=== PATIENT | female | born 1955 | race African-American/Black ===

== ENCOUNTER 2020-09-28 17:08 | Inpatient (IN) | payer OTHER ==
[~2020-09-28] VITALS: Ht 160 cm; Wt 88.9 kg
[~2020-09-28 17:08] MED LIST: ASPI-1497 PO; FLUO20CA33 PO; METO-385 PO; QUET25TA PO
[2020-09-28] MEDS ORDERED: NITROGLYCERIN 0.4MG TABLET SL SL PRN (17:45)
[2020-09-28] MEDS ORDERED: FUROSEMIDE 40MG/4ML VIAL IV ONE (17:45)
[2020-09-28] MEDS ORDERED: ASPIRIN 81MG TABLET PO ONE (17:45)
[2020-09-28 19:00] LABS: BASOPHILS % 0.8 % (0.0-2.0); EOSINOPHILS % 2.2 % (0.0-5.0); HEMATOCRIT. 40.2 % (36.0-48.0); HEMOGLOBIN. 13.7 g/dL (12.0-16.0); LYMPHOCYTES % 25.9 % (20.0-50.0); MEAN PLATELET VOLUME 11.2 fl (7.4-10.4); MONOCYTES % 7.5 % (2.0-8.0); NEUTROPHILS % 63.6 % (40.0-76.0); PLATELET 165 x1000/uL (130-400); RED BLOOD CELL COUNT 4.27 mill/uL (4.2-5.4); RED CELL DISTRIBUTION WIDTH 15.4 % (11.6-14.6)
[2020-09-28] MEDS ORDERED: ACETAMINOPHEN WITH CODEINE 300/30MG TABLET PO ONE (19:00)
[2020-09-28 19:06] LABS: CHLORIDE 104 mEq/L (98-107)
[2020-09-28] MEDS ORDERED: IBUPROFEN 600MG TABLET PO ONE (20:45)
[2020-09-28] MEDS ORDERED: ENOXAPARIN 100MG/ML SYR SUBCUT ONE (22:30)
[2020-09-29] MEDS ORDERED: IBUPROFEN 600MG TABLET PO NR (04:00)
[2020-09-29] MEDS ORDERED: ENOXAPARIN 100MG/ML SYR SUBCUT NR (04:00)
[2020-09-29] MEDS ORDERED: DEXTROSE 50% WATER 50ML SYRINGE IV PRN (08:45)
[2020-09-29] MEDS ORDERED: CLONIDINE 0.1MG TABLET PO PRN (08:45)
[2020-09-29] MEDS ORDERED: ONDANSETRON HCL 4MG/2ML INJ IV PRN (08:45)
[2020-09-29] MEDS ORDERED: ACETAMINOPHEN 325MG TABLET PO PRN (08:45)
[2020-09-29] MEDS ORDERED: FUROSEMIDE 40MG/4ML VIAL IVP SCH (09:00)
[2020-09-29 11:15] VITALS: BP 166/69
[2020-09-29 11:41] VITALS: BP 166/69
[2020-09-29] MEDS: ASPIRIN 81MG TABLET PO SCH (11:50)
[2020-09-29] MEDS: LOSARTAN POTASSIUM 100 MG TABLET PO SCH (11:50)
[2020-09-29] MEDS: ENOXAPARIN 30MG/0.3ML SYR SUBCUT SCH ×2 (11:50→21:06)
[2020-09-29] MEDS: CLOPIDOGREL 75MG TABLET PO SCH (12:35)
[2020-09-29] MEDS: BLOOD SUGAR DIAGNOSTIC STRIP TEST SCH ×3 (12:35→21:07)
[2020-09-29] MEDS: AMLODIPINE 10MG TABLET PO SCH (12:35)
[2020-09-29] MEDS: INSULIN LISPRO 100 UNITS/ML SUBCUT SCH ×3 (13:23→21:08)
[2020-09-29 13:30] VITALS: BP 149/65
[2020-09-29] MEDS ORDERED: INSULIN GLARGINE UD 100 UNITS/ML SYR SUBCUT NR (14:00)
[2020-09-29] MEDS ORDERED: CLOP75TA33 PO (16:31)
[2020-09-29 16:35] VITALS: BP 160/98
[2020-09-29] MEDS ORDERED: *PATIENT'S OWN MEDICATION STORAGE XX SCH (17:30)
[2020-09-29 19:11] LABS: CLARITY URINE CLEAR (CLEAR); COLOR URINE YELLOW (YELLOW); KETONES URINE TRACE (NEGATIVE); LEUKOCYTE ESTERASE URINE NEGATIVE (NEGATIVE); NITRITE URINE NEGATIVE (NEGATIVE); OCCULT BLOOD URINE NEGATIVE (NEGATIVE); PH URINE 6.5 (4.5-8.0); PROTEIN URINE NEGATIVE (NEGATIVE); SPECIFIC GRAVITY URINE 1.029 (1.005-1.030)
[2020-09-29 19:47] LABS: *AMPHETAMINES SCREEN URINE NEGATIVE (NEGATIVE); *BARBITURATES SCREEN URINE NEGATIVE (NEGATIVE); *BENZODIAZEPINES SCREEN URINE NEGATIVE (NEGATIVE); *COCAINE SCREEN URINE NEGATIVE (NEGATIVE); METHADONE URINE SCREEN NEGATIVE (NEGATIVE); OPIATES URINE SCREEN PRESUMTIVE POSITIVE (NEGATIVE); PHENCYCLIDINE URINE SCREEN NEGATIVE (NEGATIVE)
[2020-09-29 19:48] LABS: CANNABINOID URINE SCREEN NEGATIVE (NEGATIVE)
[2020-09-29 20:00] VITALS: BP 146/108
[2020-09-29] MEDS ORDERED: ATORVASTATIN CALCIUM 40MG TABLET PO SCH (21:00)
[2020-09-29] MEDS ORDERED: ZOLPIDEM TARTRATE 5MG TABLET PO PRN (22:15)
[2020-09-29] MEDS: INSULIN GLARGINE UD 100 UNITS/ML SYR SUBCUT SCH (22:30)
[2020-09-30 00:14] VITALS: BP 132/87
[2020-09-30 04:26] VITALS: BP 190/109
[2020-09-30] MEDS: BLOOD SUGAR DIAGNOSTIC STRIP TEST SCH ×2 (07:08→12:53)
[2020-09-30] MEDS: INSULIN LISPRO 100 UNITS/ML SUBCUT SCH ×2 (07:39→12:50)
[2020-09-30 08:04] VITALS: BP 126/71
[2020-09-30] MEDS ORDERED: FUROSEMIDE 40MG/4ML VIAL IVP SCH (09:00)
[2020-09-30] MEDS: LOSARTAN POTASSIUM 100 MG TABLET PO SCH (09:10)
[2020-09-30] MEDS: CLOPIDOGREL 75MG TABLET PO SCH (09:10)
[2020-09-30] MEDS: ASPIRIN 81MG TABLET PO SCH (09:10)
[2020-09-30] MEDS: ENOXAPARIN 30MG/0.3ML SYR SUBCUT SCH (09:11)
[2020-09-30] MEDS: AMLODIPINE 10MG TABLET PO SCH (09:12)
[2020-09-30] MEDS: INSULIN GLARGINE UD 100 UNITS/ML SYR SUBCUT SCH (09:39)
[2020-09-30 10:10] LABS: BASOPHILS % 0.7 % (0.0-2.0); EOSINOPHILS % 2.9 % (0.0-5.0); HEMATOCRIT. 37.6 % (36.0-48.0); HEMOGLOBIN. 12.6 g/dL (12.0-16.0); LYMPHOCYTES % 31.7 % (20.0-50.0); MEAN CORPUSCULAR HEMOGLOBIN 31.9 pg (28.0-32.0); MEAN CORPUSCULAR VOLUME 95.2 fL (81.0-99.0); MEAN PLATELET VOLUME 10.5 fl (7.4-10.4); NEUTROPHILS % 55.7 % (40.0-76.0); PLATELET 131 x1000/uL (130-400); RED BLOOD CELL COUNT 3.95 mill/uL (4.2-5.4); RED CELL DISTRIBUTION WIDTH 14.6 % (11.6-14.6)
[2020-09-30 10:19] LABS: CHLORIDE 106 mEq/L (98-107)
[2020-09-30 10:29] LABS: LDL CHOLESTEROL 99 mg/dL (5-100)
[2020-09-30 10:30] LABS: HDL CHOLESTEROL 59 mg/dL (40-59)
[2020-09-30] MEDS ORDERED: METOPROLOL TARTRATE 25MG TABLET PO SCH (11:00)
[2020-09-30] MEDS ORDERED: FURO-151 MT (11:58)
[2020-09-30] MEDS ORDERED: POTASSIUM CHLORIDE 20MEQ TABLET SR PO NR (12:00)
[2020-09-30 12:30] VITALS: BP 150/101
[2020-09-30 13:08] VITALS: BP 150/101
== END 2020-09-30 14:45 | disposition home or self-care (01) | DRG 194 ==
LOC: ER 17:08 → MICUSO 22:18 → EDBEDREQTM 22:24 → EDBEDREQ 22:24 → 6WST 09-29 10:08
PROVIDERS: ADMIT Internal Medicine; ATTEND Internal Medicine
DX: I11.0 Hypertensive heart disease with heart failure (principal); E11.9 Type 2 diabetes mellitus without complications; I50.33 Acute on chronic diastolic (congestive) heart failure; E66.9 Obesity, unspecified; E78.5 Hyperlipidemia, unspecified; F17.210 Nicotine dependence, cigarettes, uncomplicated; F41.9 Anxiety disorder, unspecified; I25.10 Atherosclerotic heart disease of native coronary artery without angina pectoris; J44.9 Chronic obstructive pulmonary disease, unspecified; Z79.02 Long term (current) use of antithrombotics/antiplatelets; Z79.899 Other long term (current) drug therapy; Z95.5 Presence of coronary angioplasty implant and graft; Z88.0 Allergy status to penicillin; Z79.82 Long term (current) use of aspirin; Z71.6 Tobacco abuse counseling; Z71.3 Dietary counseling and surveillance; I25.2 Old myocardial infarction; Z68.34 Body mass index [BMI] 34.0-34.9, adult
CPT/HCPCS: 36415; 71045; 80048; 80053; 80061; 80305; 81003; 82962; 83735; 83880; 84484; 85025; 93005; 93306; 93970; 96374; 99291; J1650; J1815; J1940

== ENCOUNTER 2020-11-03 15:09 | Inpatient (IN) | payer OTHER ==
[~2020-11-03] VITALS: Ht 160 cm; Wt 86.2 kg
[~2020-11-03 15:09] MED LIST changes: +CLOP75TA33 PO; +FURO-151 MT
[2020-11-03 18:12] LABS: BASOPHILS % 1.2 % (0.0-2.0); EOSINOPHILS % 3.6 % (0.0-5.0); HEMATOCRIT. 36.7 % (36.0-48.0); HEMOGLOBIN. 12.2 g/dL (12.0-16.0); LYMPHOCYTES % 27.9 % (20.0-50.0); MEAN CORPUSCULAR VOLUME 95.9 fL (81.0-99.0); MEAN PLATELET VOLUME 10.8 fl (7.4-10.4); MONOCYTES % 6.6 % (2.0-8.0); NEUTROPHILS % 60.7 % (40.0-76.0); PLATELET 161 x1000/uL (130-400); RED BLOOD CELL COUNT 3.83 mill/uL (4.2-5.4); RED CELL DISTRIBUTION WIDTH 14.8 % (11.6-14.6)
[2020-11-03 18:18] LABS: CHLORIDE 105 mEq/L (98-107)
[2020-11-03] MEDS ORDERED: FUROSEMIDE 20MG/2ML VIAL IVP ONE (19:00)
[2020-11-03 21:30] VITALS: BP 194/95
[2020-11-03] MEDS ORDERED: LANTUSUD SUBCUT (22:23)
[2020-11-03] MEDS ORDERED: CLONIDINE 0.1MG TABLET PO PRN (23:45)
[2020-11-03] MEDS ORDERED: IPRATROPIUM/ALBUTEROL 0.5-3(2.5)MG/3ML NEB NEB PRN (23:45)
[2020-11-03] MEDS ORDERED: ACETAMINOPHEN 325MG TABLET PO PRN (23:45)
[2020-11-03] MEDS ORDERED: MAGNESIUM/ALUMINUM HYDROXIDE/SIMETHICONE 30ML UDC PO PRN (23:45)
[2020-11-03] MEDS ORDERED: ONDANSETRON HCL 4MG/2ML INJ IV PRN (23:45)
[2020-11-04] MEDS: HYDROCODONE/ACETAMINOPHEN 5/325MG TABLET PO PRN ×2 (04:22→13:51)
[2020-11-04 04:34] VITALS: BP 205/95
[2020-11-04] MEDS ORDERED: DEXTROSE 50% WATER 50ML SYRINGE IV PRN (06:30)
[2020-11-04] MEDS: BLOOD SUGAR DIAGNOSTIC STRIP TEST SCH ×2 (06:31→11:56)
[2020-11-04] MEDS: INSULIN LISPRO 100 UNITS/ML SUBCUT SCH ×2 (06:37→11:56)
[2020-11-04] MEDS ORDERED: LIDOCAINE HCL/PF 1% 2ML VIAL ONE (06:40)
[2020-11-04 07:13] LABS: BG BASE EXCESS 3.3 mmol/L (-2.0-2.0); BG CARBOXYHEMOGLOBIN 1.7 % (0.5-1.5); BG DEOXYHEMOGLOBIN 5.8 % (0.0-5.0); BG HCO3 ACT 28.2 mmol/L (22.0-26.0); BG METHEMOGLOBIN 0.3 % (0.0-1.5); BG OXYGEN SATURATION 94.1 % (92.0-98.5); BG OXYHEMOGLOBIN 92.2 % (94.0-97.0); BG PCO2 44.2 mmHg (35.0-45.0); BG PH 7.423 (7.350-7.450); BG PO2 69.1 mmHg (75.0-100.0); BG SAMPLE SITE RIGHT BRACHIAL; BG TOTAL HEMOGLOBIN 12.8 g/dL (12.0-18.0); BG VENT MODE ROOM AIR
[2020-11-04 08:00] VITALS: BP 151/84
[2020-11-04] MEDS ORDERED: ENOXAPARIN 40MG/0.4ML SYR SUBCUT SCH (09:00)
[2020-11-04] MEDS ORDERED: FUROSEMIDE 20MG TABLET PO SCH (09:00)
[2020-11-04] MEDS ORDERED: METOPROLOL TARTRATE 100MG TABLET PO SCH (10:00)
[2020-11-04] MEDS ORDERED: HYDRALAZINE 20MG/ML VIAL IV PRN (10:00)
[2020-11-04] MEDS ORDERED: AMLODIPINE 5MG TABLET PO SCH (10:00)
[2020-11-04 10:16] LABS: BASOPHILS % 0.7 % (0.0-2.0); HEMATOCRIT. 36.5 % (36.0-48.0); HEMOGLOBIN. 12.5 g/dL (12.0-16.0); MEAN CORPUSCULAR HEMOGLOBIN 32.7 pg (28.0-32.0); MEAN CORPUSCULAR VOLUME 95.7 fL (81.0-99.0); MONOCYTES % 9.3 % (2.0-8.0); RED BLOOD CELL COUNT 3.81 mill/uL (4.2-5.4); RED CELL DISTRIBUTION WIDTH 14.3 % (11.6-14.6)
[2020-11-04 10:27] LABS: CHLORIDE 107 mEq/L (98-107)
[2020-11-04 10:37] LABS: LDL CHOLESTEROL 115 mg/dL (5-100)
[2020-11-04 10:38] LABS: CREATINE KINASE 71 IU/L (26-192)
[2020-11-04 10:39] LABS: CREATINE KINASE MB FRACTION < 1.0 ng/mL (0.5-3.6)
[2020-11-04 10:41] LABS: HDL CHOLESTEROL 54 mg/dL (40-59)
[2020-11-04 10:54] LABS: CLARITY URINE CLEAR (CLEAR); COLOR URINE YELLOW (YELLOW); KETONES URINE NEGATIVE (NEGATIVE); LEUKOCYTE ESTERASE URINE NEGATIVE (NEGATIVE); NITRITE URINE NEGATIVE (NEGATIVE); OCCULT BLOOD URINE NEGATIVE (NEGATIVE); PROTEIN URINE NEGATIVE (NEGATIVE); SPECIFIC GRAVITY URINE 1.018 (1.005-1.030); UROBILINOGEN URINE 0.2 E.U./dL (0.2-1.0)
[2020-11-04] MEDS ORDERED: CLOPIDOGREL 75MG TABLET PO SCH (11:15)
[2020-11-04] MEDS ORDERED: ASPIRIN 81MG TABLET PO SCH (11:15)
[2020-11-04 11:27] LABS: PLATELET 142 x1000/uL (130-400)
[2020-11-04 11:33] LABS: *BENZODIAZEPINES SCREEN URINE NEGATIVE (NEGATIVE); CANNABINOID URINE SCREEN NEGATIVE (NEGATIVE); METHADONE URINE SCREEN NEGATIVE (NEGATIVE); OPIATES URINE SCREEN NEGATIVE (NEGATIVE); PHENCYCLIDINE URINE SCREEN NEGATIVE (NEGATIVE)
[2020-11-04 11:35] LABS: *AMPHETAMINES SCREEN URINE NEGATIVE (NEGATIVE)
[2020-11-04 11:36] LABS: *COCAINE SCREEN URINE NEGATIVE (NEGATIVE)
[2020-11-04 11:37] LABS: *BARBITURATES SCREEN URINE NEGATIVE (NEGATIVE)
[2020-11-04 12:00] VITALS: BP 158/87
[2020-11-04] MEDS ORDERED: NICOTINE 7MG PATCH TD SCH (12:00)
[2020-11-04 13:51] VITALS: BP 158/87
[2020-11-04] MEDS ORDERED: ATORVASTATIN CALCIUM 40MG TABLET PO SCH (21:00)
[2020-11-04] MEDS ORDERED: INSULIN GLARGINE UD 100 UNITS/ML SYR SUBCUT SCH ×2 (22:00)
== END 2020-11-04 16:46 | disposition left against medical advice (07) | DRG 194 ==
LOC: ER 15:09 → 6WST 18:23 → ENRESERV 20:11
PROVIDERS: ADMIT Internal Medicine; ATTEND Internal Medicine
DX: I11.0 Hypertensive heart disease with heart failure (principal); J96.00 Acute respiratory failure, unspecified whether with hypoxia or hypercapnia; E11.65 Type 2 diabetes mellitus with hyperglycemia; E78.5 Hyperlipidemia, unspecified; I16.0 Hypertensive urgency; I25.10 Atherosclerotic heart disease of native coronary artery without angina pectoris; I50.33 Acute on chronic diastolic (congestive) heart failure; J44.9 Chronic obstructive pulmonary disease, unspecified; Z79.02 Long term (current) use of antithrombotics/antiplatelets; Z79.4 Long term (current) use of insulin; Z79.82 Long term (current) use of aspirin; Z79.899 Other long term (current) drug therapy; Z90.710 Acquired absence of both cervix and uterus; Z91.14 Patient's other noncompliance with medication regimen; Z95.5 Presence of coronary angioplasty implant and graft; Z88.0 Allergy status to penicillin; I25.2 Old myocardial infarction; Z72.0 Tobacco use
CPT/HCPCS: 36415; 36600; 71045; 80053; 80061; 80305; 81003; 82375; 82550; 82553; 82805; 82962; 83036; 83880; 84443; 84481; 84484; 85025; 93005; 93306; 99285; J1650; J1815; J1940; J3490

== ENCOUNTER 2020-12-12 14:03 | Inpatient (IN) | payer OTHER ==
[~2020-12-12] VITALS: Ht 165.1 cm; Wt 75.0 kg
[~2020-12-12 14:03] MED LIST changes: +LANTUSUD SUBCUT
[2020-12-12 15:49] LABS: BASOPHILS % 0.9 % (0.0-2.0); EOSINOPHILS % 1.5 % (0.0-5.0); HEMATOCRIT. 41.6 % (36.0-48.0); HEMOGLOBIN. 14.2 g/dL (12.0-16.0); MEAN CORPUSCULAR HEMOGLOBIN 32.5 pg (28.0-32.0); MEAN CORPUSCULAR VOLUME 95.3 fL (81.0-99.0); MEAN PLATELET VOLUME 11.2 fl (7.4-10.4); MONOCYTES % 7.2 % (2.0-8.0); NEUTROPHILS % 62.4 % (40.0-76.0); PLATELET 178 x1000/uL (130-400); RED BLOOD CELL COUNT 4.36 mill/uL (4.2-5.4); RED CELL DISTRIBUTION WIDTH 13.9 % (11.6-14.6)
[2020-12-12 15:58] LABS: CHLORIDE 107 mEq/L (98-107)
[2020-12-12 16:05] LABS: ETHANOL BLOOD < 10 mg/dL
[2020-12-12 17:26] LABS: CLARITY URINE CLEAR (CLEAR); COLOR URINE YELLOW (YELLOW); KETONES URINE TRACE (NEGATIVE); LEUKOCYTE ESTERASE URINE NEGATIVE (NEGATIVE); NITRITE URINE NEGATIVE (NEGATIVE); OCCULT BLOOD URINE NEGATIVE (NEGATIVE); PH URINE 5.5 (4.5-8.0); PROTEIN URINE NEGATIVE (NEGATIVE); SPECIFIC GRAVITY URINE 1.025 (1.005-1.030)
[2020-12-12 17:55] LABS: *AMPHETAMINES SCREEN URINE NEGATIVE (NEGATIVE); *BARBITURATES SCREEN URINE NEGATIVE (NEGATIVE); *BENZODIAZEPINES SCREEN URINE NEGATIVE (NEGATIVE); *COCAINE SCREEN URINE NEGATIVE (NEGATIVE); METHADONE URINE SCREEN NEGATIVE (NEGATIVE)
[2020-12-12 17:56] LABS: CANNABINOID URINE SCREEN NEGATIVE (NEGATIVE); OPIATES URINE SCREEN NEGATIVE (NEGATIVE); PHENCYCLIDINE URINE SCREEN NEGATIVE (NEGATIVE)
[2020-12-12] MEDS ORDERED: ACETAMINOPHEN 325MG TABLET PO PRN (18:30)
[2020-12-12] MEDS ORDERED: ONDANSETRON HCL 4MG/2ML INJ IV PRN (18:30)
[2020-12-12] MEDS ORDERED: DIPHENHYDRAMINE 50MG/ML VIAL IV PRN (18:30)
[2020-12-12] MEDS ORDERED: IPRATROPIUM/ALBUTEROL 0.5-3(2.5)MG/3ML NEB HHN PRN (18:30)
[2020-12-12] MEDS: LACTULOSE 20G/30ML UDC PO SCH (22:18)
[2020-12-12] MEDS: CLONIDINE 0.1MG TABLET PO PRN (22:19)
[2020-12-13] MEDS: LACTULOSE 20G/30ML UDC PO SCH ×2 (06:40→14:23)
[2020-12-13] MEDS: CLONIDINE 0.1MG TABLET PO PRN (10:11)
[2020-12-13] MEDS ORDERED: ASPIRIN 325MG EC TABLET PO SCH (13:00)
[2020-12-13] MEDS ORDERED: LOSARTAN POTASSIUM 50 MG TABLET PO SCH (13:00)
[2020-12-13] MEDS ORDERED: DEXTROSE 50% WATER 50ML SYRINGE IV PRN (14:15)
[2020-12-13 15:30] VITALS: BP 165/90
[2020-12-13] MEDS ORDERED: BLOOD SUGAR DIAGNOSTIC STRIP TEST SCH (16:30)
[2020-12-13] MEDS ORDERED: INSULIN LISPRO 100 UNITS/ML SUBCUT SCH (17:00)
[2020-12-13] MEDS ORDERED: ATORVASTATIN CALCIUM 40MG TABLET PO SCH (21:00)
== END 2020-12-13 16:00 | disposition left against medical advice (07) | DRG 194 ==
LOC: ER 14:03 → MICUSO 17:56
PROVIDERS: ADMIT Internal Medicine; ATTEND Internal Medicine
DX: I11.0 Hypertensive heart disease with heart failure (principal); E72.20 Disorder of urea cycle metabolism, unspecified; K72.90 Hepatic failure, unspecified without coma; I50.32 Chronic diastolic (congestive) heart failure; R53.1 Weakness; E11.9 Type 2 diabetes mellitus without complications; E78.5 Hyperlipidemia, unspecified; F17.200 Nicotine dependence, unspecified, uncomplicated; I25.10 Atherosclerotic heart disease of native coronary artery without angina pectoris; J44.9 Chronic obstructive pulmonary disease, unspecified; R29.6 Repeated falls; I25.2 Old myocardial infarction; Z95.5 Presence of coronary angioplasty implant and graft; Z90.710 Acquired absence of both cervix and uterus; Z88.0 Allergy status to penicillin; Z79.899 Other long term (current) drug therapy; Z71.6 Tobacco abuse counseling
CPT/HCPCS: 36415; 71045; 76700; 80053; 80305; 80320; 81003; 82140; 82962; 83880; 84484; 85025; 93005; 93970; 99285; J2405; G0480

== ENCOUNTER 2021-05-30 20:42 | Inpatient (IN) | payer MEDICAID, OTHER ==
[~2021-05-30] VITALS: Ht 157.5 cm; Wt 73.9 kg
[2021-05-31 00:01] LABS: HEMATOCRIT. 37.2 % (36.0-48.0); HEMOGLOBIN. 12.3 g/dL (12.0-16.0); MEAN CORPUSCULAR HEMOGLOBIN 31.2 pg (28.0-32.0); MEAN CORPUSCULAR VOLUME 94.5 fL (81.0-99.0); MEAN PLATELET VOLUME 10.8 fl (7.4-10.4); PLATELET 162 x1000/uL (130-400); RED BLOOD CELL COUNT 3.94 mill/uL (4.2-5.4); RED CELL DISTRIBUTION WIDTH 14.3 % (11.6-14.6)
[2021-05-31 00:05] LABS: CHLORIDE 105 mEq/L (98-107)
[2021-05-31] MEDS ORDERED: ASPIRIN 325MG TABLET PO ONE (00:45)
[2021-05-31] MEDS ORDERED: MAGNESIUM/ALUMINUM HYDROXIDE/SIMETHICONE 30ML UDC PO PRN (04:00)
[2021-05-31] MEDS ORDERED: SODIUM CHLORIDE 0.9% 500 ML IV ONE (04:00)
[2021-05-31] MEDS ORDERED: ONDANSETRON HCL 4MG/2ML INJ IV PRN (04:00)
[2021-05-31] MEDS ORDERED: ACETAMINOPHEN 325MG TABLET PO PRN ×2 (04:00)
[2021-05-31] MEDS ORDERED: INSULIN REGULAR (HUMULIN R) 300UNITS/3ML VIAL SUBCUT SCH (04:00)
[2021-05-31] MEDS ORDERED: DEXTROSE 50% WATER 50ML SYRINGE IV PRN (04:00)
[2021-05-31] MEDS ORDERED: NALOXONE HCL 0.4 MG/ML 1ML VIAL IV PRN (04:30)
[2021-05-31 07:37] LABS: PLATELET ESTIMATE NORMAL
[2021-05-31] MEDS: INSULIN LISPRO 100 UNITS/ML SUBCUT SCH ×4 (08:20→21:50)
[2021-05-31] MEDS: BLOOD SUGAR DIAGNOSTIC STRIP TEST SCH ×4 (09:12→21:44)
[2021-05-31] MEDS: HYDROCODONE/ACETAMINOPHEN 5/325MG TABLET PO PRN (09:15)
[2021-05-31] MEDS: ENOXAPARIN 40MG/0.4ML SYR SUBCUT SCH (09:15)
[2021-05-31] MEDS: CLONIDINE 0.1MG TABLET PO PRN (09:15)
[2021-05-31 11:00] VITALS: BP 106/67
[2021-05-31 12:00] VITALS: BP 106/67
[2021-05-31 16:00] VITALS: BP 155/74
[2021-05-31 20:00] VITALS: BP 143/71
[2021-05-31] MEDS: GUAIFENESIN 200MG/10ML SUGAR FREE UDC PO PRN (23:19)
[2021-05-31] MEDS ORDERED: ASPIRIN 81MG EC TABLET PO SCH (23:30)
[2021-05-31] MEDS ORDERED: CLOPIDOGREL 75MG TABLET PO SCH (23:30)
[2021-05-31] MEDS: QUETIAPINE FUMARATE 25MG TABLET PO SCH (23:48)
[2021-06-01] VITALS: BP 146/100
[2021-06-01] MEDS: METOPROLOL SUCCINATE 50MG ER TABLET PO SCH ×2 (03:04→12:00)
[2021-06-01 04:00] VITALS: BP 145/70
[2021-06-01] MEDS: BLOOD SUGAR DIAGNOSTIC STRIP TEST SCH ×4 (07:02→20:35)
[2021-06-01] MEDS: INSULIN LISPRO 100 UNITS/ML SUBCUT SCH ×4 (07:11→21:51)
[2021-06-01 07:13] LABS: BASOPHILS % 0.9 % (0.0-2.0); EOSINOPHILS % 1.9 % (0.0-5.0); HEMOGLOBIN. 11.4 g/dL (12.0-16.0); LYMPHOCYTES % 31.2 % (20.0-50.0); MEAN CORPUSCULAR HEMOGLOBIN 31.6 pg (28.0-32.0); MEAN CORPUSCULAR VOLUME 94.3 fL (81.0-99.0); MONOCYTES % 7.3 % (2.0-8.0); NEUTROPHILS % 58.7 % (40.0-76.0); PLATELET 142 x1000/uL (130-400); RED CELL DISTRIBUTION WIDTH 13.9 % (11.6-14.6)
[2021-06-01 08:00] VITALS: BP 147/83
[2021-06-01] MEDS ORDERED: REGADENOSON 0.4 MG/5 ML IV NR (08:00)
[2021-06-01 08:45] LABS: CHLORIDE 109 mEq/L (98-107)
[2021-06-01 08:54] LABS: PHOSPHORUS 3.6 mg/dL (2.5-4.9)
[2021-06-01] MEDS: ASPIRIN 81MG TABLET PO SCH (09:23)
[2021-06-01] MEDS: ENOXAPARIN 40MG/0.4ML SYR SUBCUT SCH (09:23)
[2021-06-01] MEDS: CLOPIDOGREL 75MG TABLET PO SCH (09:23)
[2021-06-01 10:38] LABS: T4 FREE 0.74 ng/dL (0.76-1.46)
[2021-06-01 12:00] VITALS: BP 150/81
[2021-06-01] MEDS ORDERED: LIDOCAINE HCL/PF 1% 2ML VIAL ONE (13:17)
[2021-06-01] MEDS ORDERED: IPRATROPIUM/ALBUTEROL 0.5-3(2.5)MG/3ML NEB HHN PRN (13:30)
[2021-06-01] MEDS: METHYLPREDNISOLONE SOD SUCC 40 MG/ML VIAL IV SCH ×2 (15:04→20:35)
[2021-06-01] MEDS: IPRATROPIUM/ALBUTEROL 0.5-3(2.5)MG/3ML NEB HHN SCH ×2 (15:31→21:53)
[2021-06-01 16:00] VITALS: BP 154/84
[2021-06-01 17:13] LABS: BG BASE EXCESS 0.7 mmol/L (-2.0-2.0); BG CARBOXYHEMOGLOBIN 0.8 % (0.5-1.5); BG FRACTION INSPIRED OXYGEN 21; BG HCO3 ACT 25.3 mmol/L (22.0-26.0); BG METHEMOGLOBIN 0.3 % (0.0-1.5); BG OXYGEN SATURATION 87.9 % (92.0-98.5); BG OXYHEMOGLOBIN 86.9 % (94.0-97.0); BG PCO2 40.7 mmHg (35.0-45.0); BG PH 7.412 (7.350-7.450); BG PO2 51.4 mmHg (75.0-100.0); BG SAMPLE SITE LEFT RADIAL; BG TOTAL HEMOGLOBIN 13.1 g/dL (12.0-18.0); BG VENT MODE ROOM AIR
[2021-06-01] MEDS ORDERED: ASPIRIN 81MG EC TABLET PO SCH (18:00)
[2021-06-01 18:16] LABS: CREATINE KINASE 58 IU/L (26-192)
[2021-06-01 18:17] LABS: CREATINE KINASE MB FRACTION < 1.0 ng/mL (0.5-3.6)
[2021-06-01 20:00] VITALS: BP 122/78
[2021-06-01] MEDS: QUETIAPINE FUMARATE 25MG TABLET PO SCH (20:30)
[2021-06-01] MEDS: HYDROCODONE/ACETAMINOPHEN 5/325MG TABLET PO PRN (20:53)
[2021-06-01] MEDS: GUAIFENESIN 200MG/10ML SUGAR FREE UDC PO PRN (20:53)
[2021-06-01] MEDS ORDERED: QUETIAPINE FUMARATE 25MG TABLET PO SCH (21:00)
[2021-06-01] MEDS ORDERED: INSULIN GLARGINE UD 100 UNITS/ML SYR SUBCUT NR (22:00)
[2021-06-02] VITALS (7 sets, daily range): BP systolic 133–178; BP diastolic 78–97
[2021-06-02] MEDS: IPRATROPIUM/ALBUTEROL 0.5-3(2.5)MG/3ML NEB HHN SCH ×6 (02:16→21:02)
[2021-06-02] MEDS: BLOOD SUGAR DIAGNOSTIC STRIP TEST SCH ×4 (06:41→21:00)
[2021-06-02] MEDS: METHYLPREDNISOLONE SOD SUCC 40 MG/ML VIAL IV SCH ×2 (06:41→14:41)
[2021-06-02] MEDS: INSULIN LISPRO 100 UNITS/ML SUBCUT SCH ×5 (06:43→22:00)
[2021-06-02] MEDS ORDERED: INSULIN LISPRO 100 UNITS/ML SUBCUT SCH (06:45)
[2021-06-02 07:12] LABS: HEMATOCRIT. 37.5 % (36.0-48.0); HEMOGLOBIN. 12.3 g/dL (12.0-16.0); MEAN CORPUSCULAR VOLUME 94.4 fL (81.0-99.0); MEAN PLATELET VOLUME 11.3 fl (7.4-10.4); PLATELET 157 x1000/uL (130-400); RED BLOOD CELL COUNT 3.97 mill/uL (4.2-5.4); RED CELL DISTRIBUTION WIDTH 13.5 % (11.6-14.6)
[2021-06-02 07:13] LABS: CHLORIDE 101 mEq/L (98-107)
[2021-06-02 07:20] LABS: PHOSPHORUS 2.4 mg/dL (2.5-4.9)
[2021-06-02 07:23] LABS: CREATINE KINASE 64 IU/L (26-192)
[2021-06-02 07:26] LABS: CREATINE KINASE MB FRACTION < 1.0 ng/mL (0.5-3.6)
[2021-06-02] MEDS: ASPIRIN 81MG TABLET PO SCH (08:37)
[2021-06-02] MEDS: ENOXAPARIN 40MG/0.4ML SYR SUBCUT SCH (08:37)
[2021-06-02] MEDS: METOPROLOL SUCCINATE 50MG ER TABLET PO SCH (08:38)
[2021-06-02] MEDS: CLOPIDOGREL 75MG TABLET PO SCH (08:38)
[2021-06-02] MEDS ORDERED: INSULIN GLARGINE UD 100 UNITS/ML SYR SUBCUT SCH ×2 (10:00→12:15)
[2021-06-02] MEDS ORDERED: GUAIFENESIN-DM 200MG-20MG/10ML UDC PO PRN (16:30)
[2021-06-02] MEDS: AMLODIPINE 5MG TABLET PO SCH (17:42)
[2021-06-02] MEDS: NICOTINE 14MG PATCH TD SCH (18:13)
[2021-06-02] MEDS: HYDROCODONE/ACETAMINOPHEN 5/325MG TABLET PO PRN (18:14)
[2021-06-02 18:58] LABS: PLATELET ESTIMATE NORMAL
[2021-06-02] MEDS ORDERED: REGADENOSON 0.4 MG/5 ML IV NR (19:00)
[2021-06-02] MEDS: BUDESONIDE 0.5MG/2ML NEB HHN SCH (21:03)
[2021-06-02 21:42] LABS: CLARITY URINE CLEAR (CLEAR); COLOR URINE YELLOW (YELLOW); PROTEIN URINE NEGATIVE (NEGATIVE); SPECIFIC GRAVITY URINE 1.038 (1.005-1.030)
[2021-06-02 21:43] LABS: KETONES URINE NEGATIVE (NEGATIVE); LEUKOCYTE ESTERASE URINE NEGATIVE (NEGATIVE); NITRITE URINE NEGATIVE (NEGATIVE); OCCULT BLOOD URINE NEGATIVE (NEGATIVE); UROBILINOGEN URINE 0.2 E.U./dL (0.2-1.0)
[2021-06-02] MEDS: QUETIAPINE FUMARATE 25MG TABLET PO SCH (21:57)
[2021-06-02] MEDS: CLONIDINE 0.1MG TABLET PO PRN (23:21)
[2021-06-03] MEDS: IPRATROPIUM/ALBUTEROL 0.5-3(2.5)MG/3ML NEB HHN SCH ×5 (01:58→16:34)
[2021-06-03 04:00] VITALS: BP 148/90
[2021-06-03] MEDS: BLOOD SUGAR DIAGNOSTIC STRIP TEST SCH ×2 (06:45→12:00)
[2021-06-03] MEDS: INSULIN LISPRO 100 UNITS/ML SUBCUT SCH ×6 (06:45→16:37)
[2021-06-03 08:00] VITALS: BP 143/79
[2021-06-03] MEDS ORDERED: REGADENOSON 0.4 MG/5 ML IV ONE (09:39)
[2021-06-03] MEDS ORDERED: INSULIN GLARGINE UD 100 UNITS/ML SYR SUBCUT SCH (10:00)
[2021-06-03] MEDS: ASPIRIN 81MG TABLET PO SCH (11:18)
[2021-06-03] MEDS: METHYLPREDNISOLONE SOD SUCC 40 MG/ML VIAL IV SCH (11:18)
[2021-06-03] MEDS: CLOPIDOGREL 75MG TABLET PO SCH (11:19)
[2021-06-03] MEDS: ENOXAPARIN 40MG/0.4ML SYR SUBCUT SCH (11:19)
[2021-06-03] MEDS: NICOTINE 14MG PATCH TD SCH (11:25)
[2021-06-03] MEDS: METOPROLOL SUCCINATE 50MG ER TABLET PO SCH (11:25)
[2021-06-03] MEDS: AMLODIPINE 5MG TABLET PO SCH (11:27)
[2021-06-03 11:35] VITALS: BP 138/85
[2021-06-03] MEDS: BUDESONIDE 0.5MG/2ML NEB HHN SCH (12:34)
[2021-06-03] MEDS ORDERED: PRED10TA MT (15:15)
[2021-06-03] MEDS ORDERED: ALBU6.7H9 INH (15:15)
[2021-06-03] MEDS ORDERED: TUSSL MT (15:15)
[2021-06-03 16:12] VITALS: BP 156/95
[2021-06-04] MEDS ORDERED: INSULIN LISPRO 100 UNITS/ML SUBCUT SCH (06:45)
[2021-06-04] MEDS ORDERED: INSULIN GLARGINE UD 100 UNITS/ML SYR SUBCUT SCH (10:00)
== END 2021-06-03 19:50 | disposition left against medical advice (07) | DRG 140 ==
LOC: ER 20:42 → 5WST 05-31 01:03 → SUPCPDRO 05-31 03:48 → ENRESERV 05-31 07:46
PROVIDERS: ADMIT Internal Medicine; ATTEND Internal Medicine
DX: J44.1 Chronic obstructive pulmonary disease with (acute) exacerbation (principal); J96.00 Acute respiratory failure, unspecified whether with hypoxia or hypercapnia; E44.1 Mild protein-calorie malnutrition; I27.20 Pulmonary hypertension, unspecified; R07.89 Other chest pain; I11.0 Hypertensive heart disease with heart failure; I50.9 Heart failure, unspecified; I25.10 Atherosclerotic heart disease of native coronary artery without angina pectoris; E66.9 Obesity, unspecified; E11.65 Type 2 diabetes mellitus with hyperglycemia; Z53.29 Procedure and treatment not carried out because of patient's decision for other reasons; Z20.822 Contact with and (suspected) exposure to COVID-19; E78.5 Hyperlipidemia, unspecified; Z88.0 Allergy status to penicillin; I25.2 Old myocardial infarction; Z59.00 Homelessness unspecified; Z79.02 Long term (current) use of antithrombotics/antiplatelets; Z90.710 Acquired absence of both cervix and uterus; Z95.5 Presence of coronary angioplasty implant and graft; Z79.4 Long term (current) use of insulin; Z68.29 Body mass index [BMI] 29.0-29.9, adult; Z72.0 Tobacco use
CPT/HCPCS: 36415; 36600; 71045; 78452; 80048; 80053; 80061; 81003; 82375; 82550; 82553; 82805; 82962; 83036; 83735; 83880; 84100; 84145; 84439; 84443; 84484; 85025; 85379; 87426; 93005; 93017; 93306; 94640; 97110; 97162; 97166; 97530; 97535; 99285; A9500; J1650; J1815; J2785; J2920; J3490; J7626

== ENCOUNTER 2021-09-29 17:52 | Emergency (ER) | payer MEDICAID ==
[~2021-09-29] VITALS: Ht 160 cm; Wt 82.3 kg
[~2021-09-29 17:52] MED LIST changes: +ALBU6.7H9 INH; +PRED10TA MT; +TUSSL MT
[2021-09-29 18:49] VITALS: BP 199/116
[2021-09-29] MEDS ORDERED: ACET-2708 MT (20:37)
[2021-09-29] MEDS ORDERED: BACL-141 MT (20:37)
== END 2021-09-29 20:59 | disposition home or self-care (01) ==
LOC: ER 17:52
DX: M23.91 Unspecified internal derangement of right knee (principal); F17.200 Nicotine dependence, unspecified, uncomplicated; E11.9 Type 2 diabetes mellitus without complications; J44.1 Chronic obstructive pulmonary disease with (acute) exacerbation; I11.0 Hypertensive heart disease with heart failure; I50.9 Heart failure, unspecified; Z88.0 Allergy status to penicillin; Z79.899 Other long term (current) drug therapy; Z79.82 Long term (current) use of aspirin
CPT/HCPCS: 73562; 99283

== ENCOUNTER 2022-01-05 11:40 | Emergency (ER) | payer MEDICAID ==
[~2022-01-05] VITALS: Ht 167.6 cm; Wt 78.0 kg
[~2022-01-05 11:40] MED LIST changes: +ACET-2708 MT; +BACL-141 MT
[2022-01-05 11:49] VITALS: BP 160/85
[2022-01-05] MEDS ORDERED: FURO40TA5 MT (13:47)
== END 2022-01-05 14:09 | disposition home or self-care (01) ==
LOC: ER 11:40
DX: S09.90XA Unspecified injury of head, initial encounter (principal); W18.30XA Fall on same level, unspecified, initial encounter; Y93.89 Activity, other specified; Y92.89 Other specified places as the place of occurrence of the external cause; Y99.8 Other external cause status
CPT/HCPCS: 99284

== ENCOUNTER 2022-01-20 17:40 | Emergency (ER) | payer MEDICAID ==
[~2022-01-20] VITALS: Ht 160 cm; Wt 82.0 kg
[~2022-01-20 17:40] MED LIST changes: +FURO40TA5 MT
[2022-01-20 21:02] VITALS: BP 250/138
[2022-01-24] MEDS ORDERED: HYDR-4134 PO (04:58)
[2022-01-24] MEDS ORDERED: POTA10CA42 MT (04:58)
[2022-01-24] MEDS ORDERED: MULT-1203 MT (04:58)
[2022-01-24] MEDS ORDERED: ALLO100T PO (04:58)
[2022-01-24] MEDS ORDERED: ATOR-2 PO (04:58)
[2022-01-24] MEDS ORDERED: QUET50TA23 PO (04:58)
[2022-01-24] MEDS ORDERED: CARV6.2548 MT (04:58)
[2022-01-24] MEDS ORDERED: FLUO40CA49 MT (04:58)
== END 2022-01-20 23:16 | disposition left against medical advice (07) ==
LOC: ER 17:40
DX: Z53.21 Procedure and treatment not carried out due to patient leaving prior to being seen by health care provider (principal); E11.9 Type 2 diabetes mellitus without complications
CPT/HCPCS: 82962

== ENCOUNTER 2022-03-28 17:57 | Inpatient (IN) | payer MEDICAID ==
[~2022-03-28] VITALS: Ht 160 cm; Wt 83.0 kg
[~2022-03-28 17:57] MED LIST changes: +ALBU6.7H3 INH; -ALBU6.7H9 INH; +ALLO100T PO; +ATOR-2 PO; +CARV6.2548 MT; -FLUO20CA33 PO; +FLUO40CA49 MT; -FURO40TA5 MT; +HYDR-4134 PO; +MULT-1203 MT; +POTA10CA42 MT; -PRED10TA MT; -QUET25TA PO; +QUET50TA23 PO; -TUSSL MT
[2022-03-28] MEDS ORDERED: METHYLPREDNISOLONE SOD SUCC 125 MG/2 ML VIAL IV STA (20:22)
[2022-03-28] MEDS ORDERED: IPRATROPIUM BROMIDE (0.02%) 0.5MG/2.5ML NEB HHN STA (20:22)
[2022-03-28] MEDS ORDERED: AZITHROMYCIN 500MG/250ML 250 ML IV ONE (20:30)
[2022-03-28] MEDS ORDERED: FUROSEMIDE 40MG/4ML VIAL IVP ONE (20:30)
[2022-03-28] MEDS ORDERED: ACETAMINOPHEN 325MG TABLET PO ONE (20:30)
[2022-03-28] MEDS ORDERED: CEFTRIAXONE 2 G PREMIX 50 ML IV ONE (20:30)
[2022-03-28] MEDS: ALBUTEROL (0.083%) 2.5MG/3ML NEB HHN SCH (21:22)
[2022-03-28 22:03] LABS: BASOPHILS % 0.6 % (0.0-2.0); EOSINOPHILS % 0.5 % (0.0-5.0); HEMATOCRIT. 39.8 % (36.0-48.0); HEMOGLOBIN. 13.4 g/dL (12.0-16.0); LYMPHOCYTES % 12.2 % (20.0-50.0); MEAN CORPUSCULAR VOLUME 95.2 fL (81.0-99.0); MEAN PLATELET VOLUME 10.6 fl (7.4-10.4); MONOCYTES % 10.9 % (2.0-8.0); NEUTROPHILS % 75.8 % (40.0-76.0); PLATELET 150 x1000/uL (130-400); RED BLOOD CELL COUNT 4.18 mill/uL (4.2-5.4); RED CELL DISTRIBUTION WIDTH 14.4 % (11.6-14.6)
[2022-03-28 22:11] LABS: INR 0.9; PARTIAL THROMBOPLASTIN TIME 25.9 sec (23.4-31.0); PROTHROMBIN TIME 9.9 sec (9.6-11.0)
[2022-03-28 22:20] LABS: CHLORIDE 104 mEq/L (98-107)
[2022-03-28] MEDS ORDERED: ONDANSETRON HCL 4MG/2ML INJ IV PRN (23:30)
[2022-03-28] MEDS ORDERED: MAGNESIUM/ALUMINUM HYDROXIDE/SIMETHICONE 30ML UDC PO PRN (23:30)
[2022-03-28] MEDS ORDERED: CLONIDINE 0.1MG TABLET PO PRN (23:30)
[2022-03-28] MEDS ORDERED: GUAIFENESIN 200MG/10ML SUGAR FREE UDC PO PRN (23:30)
[2022-03-28] MEDS ORDERED: ACETAMINOPHEN 325MG TABLET PO PRN ×2 (23:30)
[2022-03-28] MEDS ORDERED: IPRATROPIUM/ALBUTEROL 0.5-3(2.5)MG/3ML NEB HHN PRN (23:30)
[2022-03-28] MEDS ORDERED: DOCUSATE SODIUM 100MG CAPSULE PO PRN (23:30)
[2022-03-29] MEDS ORDERED: DEXTROSE 50% WATER 50ML SYRINGE IV PRN (00:15)
[2022-03-29 01:26] LABS: PHOSPHORUS 2.8 mg/dL (2.5-4.9)
[2022-03-29] MEDS ORDERED: LEVOFLOXACIN 500MG PREMIX 100 ML IV SCH ×2 (03:00→23:00)
[2022-03-29] MEDS ORDERED: MAGNESIUM 2 G PREMIX 50 ML IV NR ×2 (03:00→18:00)
[2022-03-29] MEDS: ALBUTEROL 6.7GM HFA INHALER INH SCH ×2 (04:00)
[2022-03-29] MEDS ORDERED: IPRATROPIUM BROMIDE (0.02%) 0.5MG/2.5ML NEB HHN SCH (06:00)
[2022-03-29] MEDS: BLOOD SUGAR DIAGNOSTIC STRIP TEST SCH ×4 (06:51→21:18)
[2022-03-29] MEDS: INSULIN LISPRO 100 UNITS/ML SUBCUT SCH ×4 (07:14→21:18)
[2022-03-29] MEDS: POTASSIUM CHLORIDE 10MEQ TABLET SR PO SCH (09:00)
[2022-03-29] MEDS ORDERED: METOPROLOL SUCCINATE 50MG ER TABLET PO SCH (09:00)
[2022-03-29 10:17] VITALS: BP 165/105
[2022-03-29] MEDS: FUROSEMIDE 40MG/4ML VIAL IVP SCH (10:18)
[2022-03-29] MEDS: CLOPIDOGREL 75MG TABLET PO SCH (10:18)
[2022-03-29] MEDS: ALLOPURINOL 100 MG TABLET PO SCH (10:18)
[2022-03-29] MEDS: HYDRALAZINE HCL 25MG TABLET PO SCH ×4 (10:19→21:56)
[2022-03-29] MEDS: BACLOFEN 10MG TABLET PO SCH ×3 (10:20→16:36)
[2022-03-29] MEDS: MULTIVITAMINS,THER W-MINERALS TABLET PO SCH (10:20)
[2022-03-29] MEDS: ASPIRIN 81MG EC TABLET PO SCH (10:20)
[2022-03-29] MEDS: FLUOXETINE HCL 20MG CAPSULE PO SCH (10:21)
[2022-03-29 11:03] VITALS: BP 169/103
[2022-03-29 11:56] VITALS: BP 169/103
[2022-03-29 12:58] LABS: BASOPHILS % 0.9 % (0.0-2.0); EOSINOPHILS % 0.9 % (0.0-5.0); HEMOGLOBIN. 13.4 g/dL (12.0-16.0); LYMPHOCYTES % 14.1 % (20.0-50.0); MEAN CORPUSCULAR HEMOGLOBIN 31.9 pg (28.0-32.0); MEAN CORPUSCULAR VOLUME 95.3 fL (81.0-99.0); MEAN PLATELET VOLUME 10.1 fl (7.4-10.4); MONOCYTES % 12.5 % (2.0-8.0); NEUTROPHILS % 71.6 % (40.0-76.0); PLATELET 136 x1000/uL (130-400); RED CELL DISTRIBUTION WIDTH 14.2 % (11.6-14.6)
[2022-03-29 14:07] LABS: CHLORIDE 98 mEq/L (98-107)
[2022-03-29 14:20] LABS: HDL CHOLESTEROL 72 mg/dL (40-59); LDL CHOLESTEROL 105 mg/dL (5-100); T4 FREE 0.65 ng/dL (0.76-1.46)
[2022-03-29] MEDS ORDERED: POTASSIUM CHLORIDE 20MEQ TABLET SR PO NR (15:30)
[2022-03-29 16:30] VITALS: BP 187/110
[2022-03-29] MEDS: SPIRONOLACTONE 50MG TABLET PO SCH (16:32)
[2022-03-29] MEDS: AMLODIPINE 10MG TABLET PO SCH (16:32)
[2022-03-29] MEDS: PREDNISONE 20MG TABLET PO SCH (16:36)
[2022-03-29 17:53] VITALS: BP 167/103
[2022-03-29] MEDS ORDERED: CEFTRIAXONE 2 G PREMIX 50 ML IV SCH (18:45)
[2022-03-29 20:00] VITALS: BP 162/78
[2022-03-29] MEDS ORDERED: ATORVASTATIN CALCIUM 40MG TABLET PO SCH (21:00)
[2022-03-29] MEDS ORDERED: INSULIN GLARGINE 100 UNITS/ML SUBCUT SCH ×2 (21:00→23:45)
[2022-03-29] MEDS ORDERED: AZITHROMYCIN 500MG/250ML 250 ML IV SCH (21:00)
[2022-03-29] MEDS: IPRATROPIUM/ALBUTEROL 0.5-3(2.5)MG/3ML NEB HHN SCH (21:30)
[2022-03-29] MEDS ORDERED: PNEUMOCOCCAL 23-VAL P-SAC VAC 0.5 ML IM ONE (21:30)
[2022-03-29] MEDS ORDERED: INFLUENZA VACCINE 05/PF 0.5 ML SYRINGE IM ONE (21:30)
[2022-03-29] MEDS: AZITHROMYCIN 500 MG in DEXT 5% WATER 250 ML IV SCH (21:55)
[2022-03-29] MEDS: QUETIAPINE FUMARATE 50MG TABLET PO SCH (21:55)
[2022-03-29] MEDS: ATORVASTATIN CALCIUM 40MG TABLET PO SCH (21:55)
[2022-03-29] MEDS: GUAIFENESIN 600MG ER TABLET PO SCH (21:56)
[2022-03-29] MEDS: CEFTRIAXONE 2 G in DEXTROSE 5% WATER 50 ML IV SCH (21:58)
[2022-03-30] VITALS (9 sets, daily range): BP systolic 119–138; BP diastolic 68–94
[2022-03-30] MEDS: ACETYLCYSTEINE 200MG/ML 20% VIAL 4ML INH SCH (02:33)
[2022-03-30] MEDS: BLOOD SUGAR DIAGNOSTIC STRIP TEST SCH ×4 (05:57→21:00)
[2022-03-30] MEDS: IPRATROPIUM/ALBUTEROL 0.5-3(2.5)MG/3ML NEB HHN SCH ×4 (06:00→21:23)
[2022-03-30] MEDS: INSULIN LISPRO 100 UNITS/ML SUBCUT SCH ×4 (06:19→22:00)
[2022-03-30 06:37] LABS: HEMATOCRIT 39.4 % (36.0-48.0); MEAN CORPUSCULAR HEMOGLOBIN 31.4 pg (28.0-32.0); MEAN CORPUSCULAR VOLUME 94.8 fL (81.0-99.0); PLATELET 147 x1000/uL (130-400); RED BLOOD CELL COUNT 4.16 mill/uL (4.2-5.4); RED CELL DISTRIBUTION WIDTH 14.2 % (11.6-14.6)
[2022-03-30] MEDS ORDERED: INSULIN LISPRO 100 UNITS/ML SUBCUT SCH (07:40)
[2022-03-30] MEDS ORDERED: DILTIAZEM HCL 30MG TABLET PO SCH (09:00)
[2022-03-30] MEDS: FUROSEMIDE 40MG/4ML VIAL IVP SCH (09:10)
[2022-03-30] MEDS: ASPIRIN 81MG EC TABLET PO SCH (09:11)
[2022-03-30] MEDS: CLOPIDOGREL 75MG TABLET PO SCH (09:11)
[2022-03-30] MEDS: AMLODIPINE 10MG TABLET PO SCH (09:11)
[2022-03-30] MEDS: SPIRONOLACTONE 50MG TABLET PO SCH (09:11)
[2022-03-30] MEDS: HYDRALAZINE HCL 25MG TABLET PO SCH ×4 (09:11→22:02)
[2022-03-30] MEDS: FLUOXETINE HCL 20MG CAPSULE PO SCH (09:11)
[2022-03-30] MEDS: MULTIVITAMINS,THER W-MINERALS TABLET PO SCH (09:12)
[2022-03-30] MEDS: ALLOPURINOL 100 MG TABLET PO SCH (09:12)
[2022-03-30] MEDS: BACLOFEN 10MG TABLET PO SCH ×3 (09:13→18:47)
[2022-03-30] MEDS: POTASSIUM CHLORIDE 10MEQ TABLET SR PO SCH (09:13)
[2022-03-30] MEDS: PREDNISONE 20MG TABLET PO SCH ×2 (09:13→18:47)
[2022-03-30] MEDS: GUAIFENESIN 600MG ER TABLET PO SCH ×2 (09:13→22:02)
[2022-03-30] MEDS ORDERED: DILTIAZEM HCL 5MG/ML 5ML VIAL IV PRN (10:00)
[2022-03-30 10:01] LABS: CHLORIDE 100 mEq/L (98-107)
[2022-03-30 10:08] LABS: PHOSPHORUS 3.1 mg/dL (2.5-4.9)
[2022-03-30 12:45] LABS: CLARITY URINE CLEAR (CLEAR); COLOR URINE YELLOW (YELLOW); KETONES URINE NEGATIVE (NEGATIVE); LEUKOCYTE ESTERASE URINE NEGATIVE (NEGATIVE); NITRITE URINE NEGATIVE (NEGATIVE); OCCULT BLOOD URINE NEGATIVE (NEGATIVE); PH URINE 5.5 (4.5-8.0); PROTEIN URINE TRACE (NEGATIVE); UROBILINOGEN URINE 0.2 E.U./dL (0.2-1.0)
[2022-03-30] MEDS: DILTIAZEM HCL 60MG TABLET PO SCH ×2 (12:55→18:51)
[2022-03-30 13:49] LABS: *AMPHETAMINES SCREEN URINE NEGATIVE (NEGATIVE); *BARBITURATES SCREEN URINE NEGATIVE (NEGATIVE); *BENZODIAZEPINES SCREEN URINE NEGATIVE (NEGATIVE); *COCAINE SCREEN URINE NEGATIVE (NEGATIVE); CANNABINOID URINE SCREEN NEGATIVE (NEGATIVE); METHADONE URINE SCREEN NEGATIVE (NEGATIVE); OPIATES URINE SCREEN NEGATIVE (NEGATIVE); PHENCYCLIDINE URINE SCREEN NEGATIVE (NEGATIVE)
[2022-03-30] MEDS ORDERED: MUC103 INH (15:11)
[2022-03-30] MEDS ORDERED: IPRA3AMP9 HHN (15:11)
[2022-03-30] MEDS ORDERED: INSULIN LISPRO 100 UNITS/ML SUBCUT NR (19:45)
[2022-03-30] MEDS ORDERED: INSULIN GLARGINE 100 UNITS/ML SUBCUT NR (20:00)
[2022-03-30] MEDS: AZITHROMYCIN 500 MG in DEXT 5% WATER 250 ML IV SCH (22:02)
[2022-03-30] MEDS: QUETIAPINE FUMARATE 50MG TABLET PO SCH (22:02)
[2022-03-30] MEDS: CEFTRIAXONE 2 G in DEXTROSE 5% WATER 50 ML IV SCH (22:03)
[2022-03-30] MEDS: ATORVASTATIN CALCIUM 40MG TABLET PO SCH (22:03)
[2022-03-30] MEDS ORDERED: INSULIN GLARGINE 100 UNITS/ML SUBCUT SCH (23:00)
[2022-03-31] VITALS: BP 109/75
[2022-03-31] MEDS: INSULIN GLARGINE 100 UNITS/ML SUBCUT SCH ×2 (01:32→21:12)
[2022-03-31] MEDS: IPRATROPIUM/ALBUTEROL 0.5-3(2.5)MG/3ML NEB HHN SCH ×4 (02:33→20:20)
[2022-03-31 04:00] VITALS: BP 133/84
[2022-03-31 06:38] LABS: HEMOGLOBIN 11.9 g/dL (12.0-16.0); MEAN CORPUSCULAR HEMOGLOBIN 31.8 pg (28.0-32.0); MEAN CORPUSCULAR VOLUME 96.3 fL (81.0-99.0); PLATELET 153 x1000/uL (130-400); RED BLOOD CELL COUNT 3.74 mill/uL (4.2-5.4); RED CELL DISTRIBUTION WIDTH 14.1 % (11.6-14.6)
[2022-03-31] MEDS: DILTIAZEM HCL 60MG TABLET PO SCH ×4 (06:38→17:19)
[2022-03-31] MEDS: INSULIN LISPRO 100 UNITS/ML SUBCUT SCH ×4 (06:44→21:11)
[2022-03-31 07:25] LABS: CHLORIDE 96 mEq/L (98-107)
[2022-03-31 07:38] LABS: PHOSPHORUS 3.3 mg/dL (2.5-4.9)
[2022-03-31 08:00] VITALS: BP 130/91
[2022-03-31] MEDS: PREDNISONE 20MG TABLET PO SCH (09:05)
[2022-03-31] MEDS: ALLOPURINOL 100 MG TABLET PO SCH (09:05)
[2022-03-31] MEDS: ASPIRIN 81MG EC TABLET PO SCH (09:05)
[2022-03-31] MEDS: GUAIFENESIN 600MG ER TABLET PO SCH ×2 (09:05→21:09)
[2022-03-31] MEDS: SPIRONOLACTONE 50MG TABLET PO SCH (09:05)
[2022-03-31] MEDS: HYDRALAZINE HCL 25MG TABLET PO SCH ×4 (09:05→21:09)
[2022-03-31] MEDS: MULTIVITAMINS,THER W-MINERALS TABLET PO SCH (09:06)
[2022-03-31] MEDS: BACLOFEN 10MG TABLET PO SCH ×3 (09:06→17:20)
[2022-03-31] MEDS: AMLODIPINE 10MG TABLET PO SCH (09:06)
[2022-03-31] MEDS: CLOPIDOGREL 75MG TABLET PO SCH (09:06)
[2022-03-31] MEDS: FLUOXETINE HCL 20MG CAPSULE PO SCH (09:06)
[2022-03-31] MEDS: FUROSEMIDE 40MG/4ML VIAL IVP SCH (09:07)
[2022-03-31] MEDS ORDERED: INSULIN LISPRO 100 UNITS/ML SUBCUT NR (09:15)
[2022-03-31] MEDS: POTASSIUM CHLORIDE 10MEQ TABLET SR PO SCH (09:23)
[2022-03-31 12:00] VITALS: BP 136/91
[2022-03-31] MEDS: BLOOD SUGAR DIAGNOSTIC STRIP TEST SCH ×3 (12:48→21:24)
[2022-03-31 16:00] VITALS: BP 140/97
[2022-03-31] MEDS ORDERED: METHYLPREDNISOLONE SOD SUCC 40 MG/ML VIAL IV SCH (17:00)
[2022-03-31 20:00] VITALS: BP 147/81
[2022-03-31] MEDS: ACETYLCYSTEINE 200MG/ML 20% VIAL 4ML INH SCH ×2 (20:20→20:21)
[2022-03-31] MEDS: AZITHROMYCIN 500 MG in DEXT 5% WATER 250 ML IV SCH (20:41)
[2022-03-31] MEDS: ATORVASTATIN CALCIUM 40MG TABLET PO SCH (21:04)
[2022-03-31] MEDS: QUETIAPINE FUMARATE 50MG TABLET PO SCH (21:09)
[2022-03-31] MEDS: CEFTRIAXONE 2 G in DEXTROSE 5% WATER 50 ML IV SCH (22:28)
[2022-04-01] VITALS: BP 107/69
[2022-04-01] MEDS: IPRATROPIUM/ALBUTEROL 0.5-3(2.5)MG/3ML NEB HHN SCH ×2 (01:11→08:27)
[2022-04-01 04:00] VITALS: BP 146/80
[2022-04-01] MEDS: BLOOD SUGAR DIAGNOSTIC STRIP TEST SCH (06:44)
[2022-04-01] MEDS: DILTIAZEM HCL 60MG TABLET PO SCH ×2 (06:45)
[2022-04-01] MEDS: INSULIN LISPRO 100 UNITS/ML SUBCUT SCH (06:47)
[2022-04-01 06:59] LABS: HEMATOCRIT 38.8 % (36.0-48.0); HEMOGLOBIN 12.9 g/dL (12.0-16.0); MEAN CORPUSCULAR HEMOGLOBIN 31.4 pg (28.0-32.0); MEAN CORPUSCULAR VOLUME 94.9 fL (81.0-99.0); PLATELET 177 x1000/uL (130-400); RED BLOOD CELL COUNT 4.09 mill/uL (4.2-5.4); RED CELL DISTRIBUTION WIDTH 13.8 % (11.6-14.6)
[2022-04-01 07:23] LABS: PHOSPHORUS 3.3 mg/dL (2.5-4.9)
[2022-04-01 08:00] VITALS: BP 153/91
[2022-04-01 08:01] LABS: CHLORIDE 99 mEq/L (98-107)
[2022-04-01] MEDS: ACETYLCYSTEINE 200MG/ML 20% VIAL 4ML INH SCH (08:27)
[2022-04-01] MEDS ORDERED: PREDNISONE 20MG TABLET PO NR (09:00)
[2022-04-01] MEDS: HYDRALAZINE HCL 25MG TABLET PO SCH (09:31)
[2022-04-01] MEDS: ALLOPURINOL 100 MG TABLET PO SCH (09:31)
[2022-04-01] MEDS: ASPIRIN 81MG EC TABLET PO SCH (09:31)
[2022-04-01] MEDS: CLOPIDOGREL 75MG TABLET PO SCH (09:31)
[2022-04-01] MEDS: BACLOFEN 10MG TABLET PO SCH (09:31)
[2022-04-01] MEDS: FLUOXETINE HCL 20MG CAPSULE PO SCH (09:32)
[2022-04-01] MEDS: SPIRONOLACTONE 50MG TABLET PO SCH (09:32)
[2022-04-01] MEDS: AMLODIPINE 10MG TABLET PO SCH (09:32)
[2022-04-01] MEDS: GUAIFENESIN 600MG ER TABLET PO SCH (09:33)
[2022-04-01] MEDS: MULTIVITAMINS,THER W-MINERALS TABLET PO SCH (09:33)
[2022-04-01] MEDS: POTASSIUM CHLORIDE 10MEQ TABLET SR PO SCH (09:33)
[2022-04-01] MEDS ORDERED: ALBU6.7H3 INH (10:17)
[2022-04-01] MEDS ORDERED: P20 MT (10:17)
[2022-04-01] MEDS ORDERED: LEVO-65 MT (10:17)
[2022-04-01] MEDS ORDERED: TIOT18CA3 INH (10:17)
[2022-04-01 11:06] VITALS: BP 153/91
== END 2022-04-01 12:04 | disposition home or self-care (01) | DRG 140 ==
LOC: ER 18:13 → MICUSO 22:24 → 8WST 03-29 08:18
PROVIDERS: ADMIT Internal Medicine; ATTEND Internal Medicine
DX: J44.1 Chronic obstructive pulmonary disease with (acute) exacerbation (principal); J96.01 Acute respiratory failure with hypoxia; I50.33 Acute on chronic diastolic (congestive) heart failure; I24.8 Other forms of acute ischemic heart disease; I47.1 Supraventricular tachycardia; I11.0 Hypertensive heart disease with heart failure; I16.1 Hypertensive emergency; Z20.822 Contact with and (suspected) exposure to COVID-19; E11.65 Type 2 diabetes mellitus with hyperglycemia; E83.42 Hypomagnesemia; I25.10 Atherosclerotic heart disease of native coronary artery without angina pectoris; E78.00 Pure hypercholesterolemia, unspecified; R77.8 Other specified abnormalities of plasma proteins; E87.6 Hypokalemia; F17.210 Nicotine dependence, cigarettes, uncomplicated; Z91.14 Patient's other noncompliance with medication regimen; Z95.5 Presence of coronary angioplasty implant and graft; Z82.49 Family history of ischemic heart disease and other diseases of the circulatory system; Z88.0 Allergy status to penicillin; Z79.899 Other long term (current) drug therapy; I25.2 Old myocardial infarction; Z90.710 Acquired absence of both cervix and uterus
CPT/HCPCS: 36415; 71045; 80048; 80053; 80061; 80305; 81003; 82962; 83036; 83605; 83735; 83880; 84100; 84439; 84443; 84484; 85025; 85027; 87426; 93005; 93308; 93970; 94640; 99291; J0456; J0696; J1815; J1940; J1956; J2920; J2930; J3475; J3490; J7060; J7512; J7608

== ENCOUNTER 2022-05-28 11:53 | Emergency (ER) | payer MEDICAID ==
[~2022-05-28] VITALS: Ht 162.6 cm; Wt 83.6 kg
[~2022-05-28 11:53] MED LIST changes: -ALLO100T PO; -BACL-141 MT; +LEVO-65 MT; -METO-385 PO; +P20 MT; -QUET50TA23 PO; +TIOT18CA3 INH
[2022-05-28] MEDS ORDERED: FLUORESCEIN SODIUM 1MG/STRIP LEFTEYE ONE ×2 (15:45→18:15)
[2022-05-28] MEDS ORDERED: TETRACAINE 0.5% OPHTH DROPS 4ML LEFTEYE ONE (15:45)
[2022-05-28] MEDS ORDERED: KETOROLAC 60MG/2ML VIAL IM ONE (15:45)
[2022-05-28 16:02] VITALS: BP 162/100
[2022-05-28 16:45] LABS: BASOPHILS % 0.9 % (0.0-2.0); EOSINOPHILS % 2.4 % (0.0-5.0); HEMATOCRIT. 40.3 % (36.0-48.0); HEMOGLOBIN. 13.6 g/dL (12.0-16.0); MEAN CORPUSCULAR HEMOGLOBIN 33.1 pg (28.0-32.0); MEAN PLATELET VOLUME 10.8 fl (7.4-10.4); NEUTROPHILS % 62.7 % (40.0-76.0); PLATELET 165 x1000/uL (130-400); RED BLOOD CELL COUNT 4.11 mill/uL (4.2-5.4); RED CELL DISTRIBUTION WIDTH 14.9 % (11.6-14.6)
[2022-05-28 17:04] LABS: CHLORIDE 103 mEq/L (98-107)
== END 2022-05-28 20:19 | disposition home or self-care (01) ==
LOC: ER 11:53
DX: R51.9 Headache, unspecified (principal); H57.12 Ocular pain, left eye; J44.1 Chronic obstructive pulmonary disease with (acute) exacerbation; E78.00 Pure hypercholesterolemia, unspecified; Z88.0 Allergy status to penicillin; Z98.890 Other specified postprocedural states; Z79.899 Other long term (current) drug therapy
CPT/HCPCS: 36415; 70450; 80053; 85025; 85651; 96372; 99285; J1885

== ENCOUNTER 2022-07-04 17:32 | Emergency (ER) | payer MEDICARE, MEDICAID ==
[~2022-07-04] VITALS: Ht 167.6 cm; Wt 80.0 kg
[2022-07-04 18:09] VITALS: BP 196/101
== END 2022-07-04 23:00 | disposition left against medical advice (07) ==
LOC: ER 17:32
DX: Z53.21 Procedure and treatment not carried out due to patient leaving prior to being seen by health care provider (principal)

== ENCOUNTER 2024-04-29 18:34 | Emergency (ER) | payer MEDICARE, MEDICAID ==
[~2024-04-29] VITALS: Ht 160 cm; Wt 83.0 kg
[~2024-04-29 18:34] MED LIST changes: +AMLO5TAB88 PO; -HYDR-4134 PO; +HYDR25TA78 PO; +INSULIN GLARGINE 100 UNITS/ML SUBCUT SCH; +IPRA3AMP9 HHN; -POTA10CA42 MT; +POTA10CA93 MT
[2024-04-29 18:35] VITALS: O2SAT 100
[2024-04-29 18:40] VITALS: BP 230/140; TEMP 98.5
[2024-04-29] MEDS ORDERED: PREDNISONE 20MG TABLET PO ONE (19:30)
[2024-04-29 19:43] LABS: HEMATOCRIT. 36.8 % (36.0-48.0); HEMOGLOBIN. 12.1 g/dL (12.0-16.0); MEAN CORPUSCULAR HEMOGLOBIN 32.1 pg (28.0-32.0); MEAN CORPUSCULAR HGB CONC 32.9 g/dL (31.0-37.0); MEAN CORPUSCULAR VOLUME 97.5 fL (81.0-99.0); MEAN PLATELET VOLUME 10.2 fl (7.4-10.4); PLATELET 198 x1000/uL (130-400); RED BLOOD CELL COUNT 3.78 mill/uL (4.2-5.4); RED CELL DISTRIBUTION WIDTH 14.3 % (11.6-14.6); WHITE BLOOD COUNT 9.2 x1000/uL (4.5-11.0)
[2024-04-29 19:44] LABS: DIFFERENTIAL COMMENT 1
[2024-04-29 19:49] LABS: CHLORIDE 102 mEq/L (98-107); SODIUM 139 mEq/L (136-145)
[2024-04-29 19:50] LABS: CALCIUM 9.9 mg/dL (8.7-10.4); CARBON DIOXIDE 29 mEq/L (21-32)
[2024-04-29 19:55] LABS: CREATININE 1.2 mg/dL (0.6-1.0); GLUCOSE 375 mg/dL (70-105); UREA NITROGEN BLOOD 23 mg/dL (9-23)
[2024-04-29 19:56] LABS: INR 0.9; PROTHROMBIN TIME 9.7 sec (9.6-11.0)
[2024-04-29 20:04] LABS: PLATELET ESTIMATE NORMAL
[2024-04-29] MEDS: IPRATROPIUM/ALBUTEROL 0.5-3(2.5)MG/3ML NEB HHN ONE (20:16)
[2024-04-29 20:20] VITALS: PULSE 92; RESP 22; O2SAT 98
[2024-04-29 20:23] LABS: TROPONIN I HIGH SENSITIVITY 39 ng/L (3.0-34)
[2024-04-29] MEDS ORDERED: AZITHROMYCIN 500 MG TABLET PO ONE (20:45)
[2024-04-29] MEDS ORDERED: ASPIRIN 325MG EC TABLET PO ONE (20:45)
[2024-04-29 21:42] LABS: TROPONIN I HIGH SENSITIVITY 41 ng/L (3.0-34)
[2024-04-29] MEDS ORDERED: P50 MT (22:17)
[2024-04-29] MEDS ORDERED: ALBU05 NEB (22:17)
[2024-04-29] MEDS ORDERED: AZIT250T12 MT (22:17)
[2024-04-29] MEDS ORDERED: DEXTROSE 50% WATER 50ML SYRINGE IV PRN (22:30)
[2024-04-29] MEDS ORDERED: ONDANSETRON HCL 4MG/2ML INJ IV PRN (22:30)
[2024-04-29] MEDS ORDERED: KETOROLAC 15MG/ML VIAL IV PRN (22:30)
[2024-04-29] MEDS ORDERED: MAGNESIUM/ALUMINUM HYDROXIDE/SIMETHICONE 30ML UDC PO PRN (22:30)
[2024-04-29] MEDS ORDERED: GUAIFENESIN 200MG/10ML SUGAR FREE UDC PO PRN (22:30)
[2024-04-29] MEDS ORDERED: IPRATROPIUM/ALBUTEROL 0.5-3(2.5)MG/3ML NEB NEB PRN (22:30)
[2024-04-29] MEDS ORDERED: DOCUSATE SODIUM 100MG CAPSULE PO PRN (22:30)
[2024-04-29] MEDS ORDERED: NIFEDIPINE XL 60MG TAB PO SCH (22:30)
[2024-04-29] MEDS ORDERED: CLONIDINE 0.1MG TABLET PO PRN (22:30)
[2024-04-29] MEDS ORDERED: ACETAMINOPHEN 325MG TABLET PO PRN ×2 (22:30)
[2024-04-29] MEDS ORDERED: ZOLPIDEM TARTRATE 5MG TABLET PO PRN (22:30)
[2024-04-29] MEDS ORDERED: NITROGLYCERIN OINT 1GM/INCH UDPKT TD SCH (22:30)
[2024-04-29] MEDS ORDERED: NITROGLYCERIN 0.4MG TABLET SL SL PRN (22:30)
[2024-04-30] MEDS ORDERED: FUROSEMIDE 40MG/4ML VIAL IVP SCH (07:15)
[2024-04-30] MEDS ORDERED: INSULIN LISPRO 100 UNITS/ML SUBCUT SCH (08:20)
[2024-04-30] MEDS ORDERED: SPIRONOLACTONE 25MG TABLET PO SCH (09:00)
[2024-04-30] MEDS ORDERED: ZINC SULFATE 220 MG ( 50 ) CAPSULE PO SCH (09:00)
[2024-04-30] MEDS ORDERED: ASCORBIC ACID 500 MG TABLET PO SCH (09:00)
[2024-04-30] MEDS ORDERED: LOSARTAN 50 MG TABLET PO SCH (09:00)
[2024-04-30] MEDS ORDERED: BLOOD SUGAR DIAGNOSTIC STRIP TEST SCH (09:00)
[2024-04-30] MEDS ORDERED: ENOXAPARIN 40MG/0.4ML SYR SUBCUT SCH (09:00)
[2024-04-30] MEDS ORDERED: FAMOTIDINE 20MG TABLET PO SCH (09:00)
[2024-04-30] MEDS ORDERED: ASPIRIN 81MG EC TABLET PO SCH (09:00)
== END 2024-04-29 22:39 | disposition left against medical advice (07) ==
LOC: ER 18:34 → EDBEDREQ 19:41 → EDBEDREQTM 21:43 → ER 22:39 → CANBEDREQ 22:47
DX: J44.1 Chronic obstructive pulmonary disease with (acute) exacerbation (principal); I11.0 Hypertensive heart disease with heart failure; I50.9 Heart failure, unspecified; E11.9 Type 2 diabetes mellitus without complications; Z79.899 Other long term (current) drug therapy; Z88.0 Allergy status to penicillin
CPT/HCPCS: 80048; 83880; 85025; 85610; 84484; 36415; 71045; 94640; 93005; 99285; Z7610 ×2; 80061; 80320; 83540; 83550; 84439; 84443; G0480